=== PATIENT | female | born 1945 | race Caucasian/White ===

== ENCOUNTER → 2021-02-16 | Outpatient (CLI) | payer OTHER, MEDICARE ==
[~2021-02-16] MED LIST: CELEXA10 MG PO; LEVO-T100 MCG PO; LIPITOR10 MG PO; QUINU10 PD PO
== END ==
LOC: LAB 09:36
PROVIDERS: ATTEND Student in an Organized Health Care Education/Training Program
DX: Z01.812 Encounter for preprocedural laboratory examination (principal); Z20.822 Contact with and (suspected) exposure to COVID-19

== ENCOUNTER → 2021-02-18 | Outpatient (CLI) | payer OTHER, MEDICARE ==
[~2021-02-18] VITALS: Ht 170.2 cm; Wt 75.8 kg
--- NOTE | ~2021-02-18 | P ---
[facility] [place] [address] PROCEDURE REPORT Name: EDER CHOI Room #: REG MARCUS Loaiza#: [id number] Admission: 02/18/21 Attend Phys: Nemesio Marsh Discharge: Date of : 45 Report #: [id number] THIS REPORT FOR: cc: Francesca Conley MD,Nemesio Pearl MD, MD ~ cc: Francesca Conley MD DATE OF SERVICE: 02/18/2021 PROCEDURE PERFORMED: Colonoscopy. HISTORY OF PRESENT ILLNESS: The patient is a 75-year-old female who presents today for a repeat colonoscopy. Last one was in 2010 and normal at that time. She denies any symptoms currently. No family history of colon cancer. DESCRIPTION OF PROCEDURE: The risks and benefits of the procedure were explained to the patient, those risks including but not limited to bleeding, perforation and the risk of sedation. She understood these risks and gave informed consent. Sedation was given using propofol per anesthesia. Next, a digital rectal exam showed a small external hemorrhoid, otherwise normal. Next, using a standard Olympus colonoscope, the scope was placed in the patient's anus and advanced under direct vision to the cecum. The overall prep was excellent. The cecum and ileocecal valve were normal in appearance. The ascending, transverse, descending and sigmoid colon were normal. The rectal mucosa was normal. On retroflexion, no abnormalities were noted. The scope was then withdrawn and the procedure terminated. The patient tolerated the procedure well. IMPRESSION: 1. Small external hemorrhoids. 2. Otherwise, normal colonoscopy. RECOMMENDATIONS: Observe. Thank you for allowing me to participate in her care. By: [id number] Nemesio Reyes MD /nt
== END | disposition home or self-care (01) ==
LOC: GI
PROVIDERS: ATTEND Specialist
DX: Z12.11 Encounter for screening for malignant neoplasm of colon (principal); K64.4 Residual hemorrhoidal skin tags; I10 Essential (primary) hypertension; E78.5 Hyperlipidemia, unspecified; F41.9 Anxiety disorder, unspecified; E03.9 Hypothyroidism, unspecified; Z98.890 Other specified postprocedural states; Z79.899 Other long term (current) drug therapy; Z90.49 Acquired absence of other specified parts of digestive tract; Z98.51 Tubal ligation status; Z90.710 Acquired absence of both cervix and uterus
CPT/HCPCS: 62110; 62900